=== PATIENT | male | born 1955 | race Caucasian/White ===

== ENCOUNTER → 2016-05-11 | Outpatient (CLI) | payer OTHER ==
[2016-05-11 11:12] LABS: ALANINE AMINOTRANSFERASE 26 U/L (21-72); ANION GAP 12 (5-19); ASPARTATE AMINO TRANSFERASE 23 U/L (17-59); BLOOD UREA NITROGEN 13 mg/dL (7-20); CARBON DIOXIDE 27 mmol/L (22-30); CHLORIDE 103 mmol/L (98-107); CREATININE RESULT 0.79 mg/dL (0.52-1.25); Direct HDL 53 mg/dL (>40); GLUCOSE 94 mg/dL (75-110); POTASSIUM 4.8 mmol/L (3.6-5.0); SODIUM 141.7 mmol/L (137-145); TRIGLYCERIDES 118 mg/dL (<150)
[2016-05-11 11:23] LABS: DIRECT LDL 99 mg/dL (<100)
[2016-05-12 11:07] LABS: PROSTATE SPECIFIC ANTIGEN 4.4 ng/mL (0.0-4.0); PSA % FREE 10.5 % (.); PSA FREE 0.46 ng/mL
== END ==
LOC: OD 08:28
PROVIDERS: ATTEND Family Medicine
DX: I10 Essential (primary) hypertension (principal); E78.5 Hyperlipidemia, unspecified; Z79.899 Other long term (current) drug therapy; Z12.5 Encounter for screening for malignant neoplasm of prostate
CPT/HCPCS: 36415; 80048; 80061; 83036; 84154; 84443; 84450; 84460